=== PATIENT | female | born 2000 | race Hispanic/Latino ===

== ENCOUNTER 2022-05-21 23:19 | Emergency (ER) | payer SELFPAY ==
[~2022-05-21 23:19] MED LIST: Iopamidol 300 61% 100 ML VIAL FS ONE
[2022-05-21 23:45] LABS: Bilirubin Neg (Negative); Blood, Urine 50 (Negative); Clarity Clear (Clear); Glucose, Urine (Dipstick) Normal (Negative); Ketone, Urine Negative (Negative); Leukocyte 100 (Negative); Nitrite Negative (Negative); Protein, Urine (Dipstick) Negative (Neg-Trace); Urobilinogen Normal mg/dL (Less than 2)
[2022-05-21 23:48] LABS: Pregnancy Test - Urine (BHCG) Negative (Negative); Pregu Control Background? CLEAR/WHITE (CLR/WHITE); Pregu Control Bar Appear? YES (CONTROL BAR)
[2022-05-21 23:56] LABS: Bacteria/HPF Rare-Few HPF (None Seen)
[2022-05-22 00:16] LABS: #Eosinphils 0.1 10x3/uL (0.0-0.5); #Monocytes 0.8 10x3/uL (0.0-1.1); #Neutrophils 8.9 10x3/uL (1.5-8.4); %Basophils 0.2 % (0.0-2.0); %Eosinophils 0.6 % (0.0-6.0); %Lymphocytes 30.3 % (18.0-47.0); %Monocytes 5.3 % (0.0-10.0); %Neutrophils 63.4 % (40.0-75.0); Hemoglobin 12.6 g/dL (12.0-15.5); Mean Corpuscular HGB CONC 32.9 g/dL (32.0-36.0); Mean Corpuscular Hemoglobin 27.8 pg (27.0-33.0); Mean Corpuscular Volume 84.4 fl (81.6-98.3); Mean Platelet Volume 9.3 fl (7.4-10.4); Platelet Count 381 10x3/uL (150-450); RBC Distribution Width 13.2 % (11.5-14.5); Red Blood Cell (RBC) Count 4.54 10x6/uL (3.90-5.03); White Blood Cell (WBC) Count 14.1 10x3/uL (3.5-10.5)
[2022-05-22] MEDS ORDERED: Acetaminophen 500 MG TAB ONE (00:26)
[2022-05-22] MEDS ORDERED: Ketorolac Tromethamine 30 MG/ML VIAL ONE (00:26)
[2022-05-22 00:33] LABS: ALT (SGPT) 21 U/L (8-55); AST (SGOT) 16 U/L (5-34); Albumin 4.4 g/dL (3.5-5.0); Alkaline Phosphatase 98 U/L (40-110); Anion Gap 13 mmol/L (10-20); BUN (Urea Nitrogen) 15 mg/dL (7.0-18.7); Bilirubin, Total 0.1 mg/dL (0.2-1.2); Calc. Creatinine Clearance 0 mL/min (70-130); Calcium 9.2 mg/dL (7.8-10.44); Carbon Dioxide 24 mmol/L (22-29); Chloride 107 mmol/L (98-107); Estimated GFR 108; Globulin 3.4 g/dL (2.4-3.5); Glucose 79 mg/dL (70-105); Lipase 63 U/L (8-78); Potassium 3.7 mmol/L (3.5-5.1); Protein, Total 7.8 g/dL (6.0-8.3); Sodium 140 mmol/L (136-145)
[2022-05-22] MEDS ORDERED: Iopamidol 300 61% 100 ML VIAL FS ONE (14:50)
== END 2022-05-22 08:40 | disposition home or self-care (01) ==
LOC: CSHERS 23:19
DX: R10.31 Right lower quadrant pain (principal); R10.813 Right lower quadrant abdominal tenderness
CPT/HCPCS: 74177; 80053; 81003; 81015; 81025; 83690; 85025; 96374; J1885; Q9967

== ENCOUNTER 2022-08-08 13:34 | Emergency (ER) | payer SELFPAY | END 2022-08-08 14:48 | disposition home or self-care (01) | LOC: CSHERS 13:34 | DX: K59.00 Constipation, unspecified (principal) | CPT/HCPCS: 74018 ==

== ENCOUNTER 2022-11-05 06:17 | Emergency (ER) | payer SELFPAY ==
[2022-11-05 07:59] LABS: Bilirubin Neg (Negative); Blood, Urine 10 (Negative); Clarity Clear (Clear); Glucose, Urine (Dipstick) Normal (Negative); Ketone, Urine Negative (Negative); Leukocyte 25 (Negative); Nitrite Negative (Negative); Protein, Urine (Dipstick) Negative (Neg-Trace); Specific Gravity, Urine 1.005 (1.005-1.030); Urobilinogen Normal mg/dL (Less than 2)
[2022-11-05 08:00] LABS: #Monocytes 0.6 10x3/uL (0.0-1.1); #Neutrophils 5.9 10x3/uL (1.5-8.4); %Basophils 0.3 % (0.0-2.0); %Eosinophils 0.4 % (0.0-6.0); %Lymphocytes 33.7 % (18.0-47.0); %Neutrophils 59.5 % (40.0-75.0); Hemoglobin 12.3 g/dL (12.0-15.5); Mean Corpuscular HGB CONC 33.3 g/dL (32.0-36.0); Mean Corpuscular Hemoglobin 27.8 pg (27.0-33.0); Mean Corpuscular Volume 83.3 fl (81.6-98.3); Mean Platelet Volume 9.1 fl (7.4-10.4); Platelet Count 389 10x3/uL (150-450); RBC Distribution Width 13.5 % (11.5-14.5); Red Blood Cell (RBC) Count 4.43 10x6/uL (3.90-5.03)
[2022-11-05 08:15] LABS: Bacteria/HPF Rare-Few HPF (None Seen); RBC/HPF 0-3 HPF (0-3); Squamous Epithelial 0-3 HPF (0-3); WBC/HPF 0-3 HPF (0-3)
== END 2022-11-05 08:57 | disposition home or self-care (01) ==
LOC: CSHERS 06:17
DX: O99.611 Diseases of the digestive system complicating pregnancy, first trimester (principal); K59.00 Constipation, unspecified; O99.891 Other specified diseases and conditions complicating pregnancy; R03.0 Elevated blood-pressure reading, without diagnosis of hypertension; Z3A.01 Less than 8 weeks gestation of pregnancy
CPT/HCPCS: 36415; 76801; 81003; 81015; 84702; 85025; 86900; 86901; 87086

== ENCOUNTER 2022-11-19 07:34 | Emergency (ER) | payer OTHER ==
[2022-11-19] MEDS ORDERED: Ondansetron PF 4 MG/2 ML Vial ONE (07:59)
[2022-11-19 08:25] LABS: Bilirubin Neg (Negative); Blood, Urine Negative (Negative); Clarity Cloudy (Clear); Glucose, Urine (Dipstick) Normal (Negative); Ketone, Urine Negative (Negative); Leukocyte 100 (Negative); Nitrite Negative (Negative); Protein, Urine (Dipstick) Negative (Neg-Trace); Specific Gravity, Urine 1.015 (1.005-1.030); Urobilinogen Normal mg/dL (Less than 2)
[2022-11-19 08:27] LABS: #Monocytes 0.6 10x3/uL (0.0-1.1); #Neutrophils 7.8 10x3/uL (1.5-8.4); %Basophils 0.2 % (0.0-2.0); %Eosinophils 0.2 % (0.0-6.0); %Lymphocytes 21.7 % (18.0-47.0); %Monocytes 5.4 % (0.0-10.0); %Neutrophils 72.2 % (40.0-75.0); Hemoglobin 12.4 g/dL (12.0-15.5); Mean Corpuscular HGB CONC 33.1 g/dL (32.0-36.0); Mean Corpuscular Hemoglobin 27.3 pg (27.0-33.0); Mean Corpuscular Volume 82.6 fl (81.6-98.3); Mean Platelet Volume 9.2 fl (7.4-10.4); Platelet Count 381 10x3/uL (150-450); RBC Distribution Width 13.2 % (11.5-14.5); Red Blood Cell (RBC) Count 4.54 10x6/uL (3.90-5.03); White Blood Cell (WBC) Count 10.8 10x3/uL (3.5-10.5)
[2022-11-19 08:51] LABS: ALT (SGPT) 28 U/L (8-55); AST (SGOT) 13 U/L (5-34); Albumin 4.2 g/dL (3.5-5.0); Alkaline Phosphatase 84 U/L (40-110); Anion Gap 10 mmol/L (10-20); BUN (Urea Nitrogen) 7 mg/dL (7.0-18.7); Bilirubin, Total 0.2 mg/dL (0.2-1.2); Calc. Creatinine Clearance 0 mL/min (70-130); Calcium 9.1 mg/dL (7.8-10.44); Carbon Dioxide 24 mmol/L (22-29); Chloride 105 mmol/L (98-107); Estimated GFR 125; Globulin 3.3 g/dL (2.4-3.5); Glucose 97 mg/dL (70-105); Potassium 3.9 mmol/L (3.5-5.1); Protein, Total 7.5 g/dL (6.0-8.3); Sodium 135 mmol/L (136-145)
[2022-11-19 08:52] LABS: Bacteria/HPF 2+ HPF (None Seen)
== END 2022-11-19 09:45 | disposition home or self-care (01) ==
LOC: CSHERS 07:34
DX: O21.9 Vomiting of pregnancy, unspecified (principal); O23.11 Infections of bladder in pregnancy, first trimester; N30.00 Acute cystitis without hematuria; Z3A.01 Less than 8 weeks gestation of pregnancy
CPT/HCPCS: 80053; 81003; 81015; 83735; 84702; 85025; 96361; 96374; J2405

== ENCOUNTER 2022-11-28 11:21 | Emergency (ER) | payer OTHER ==
[2022-11-28 12:42] LABS: #Monocytes 0.5 10x3/uL (0.0-1.1); #Neutrophils 7.5 10x3/uL (1.5-8.4); %Basophils 0.1 % (0.0-2.0); %Eosinophils 0.1 % (0.0-6.0); %Lymphocytes 16.9 % (18.0-47.0); %Neutrophils 77.7 % (40.0-75.0); Hemoglobin 12.1 g/dL (12.0-15.5); Mean Corpuscular HGB CONC 32.6 g/dL (32.0-36.0); Mean Corpuscular Hemoglobin 26.7 pg (27.0-33.0); Mean Corpuscular Volume 81.7 fl (81.6-98.3); Mean Platelet Volume 9.2 fl (7.4-10.4); Platelet Count 371 10x3/uL (150-450); RBC Distribution Width 13.2 % (11.5-14.5); Red Blood Cell (RBC) Count 4.54 10x6/uL (3.90-5.03); White Blood Cell (WBC) Count 9.6 10x3/uL (3.5-10.5)
[2022-11-28 13:04] LABS: ALT (SGPT) 23 U/L (8-55); AST (SGOT) 17 U/L (5-34); Albumin 4.2 g/dL (3.5-5.0); Alkaline Phosphatase 84 U/L (40-110); Anion Gap 14 mmol/L (10-20); BUN (Urea Nitrogen) 7 mg/dL (7.0-18.7); Bilirubin, Total 0.2 mg/dL (0.2-1.2); Calc. Creatinine Clearance 0 mL/min (70-130); Calcium 9.5 mg/dL (7.8-10.44); Carbon Dioxide 19 mmol/L (22-29); Chloride 106 mmol/L (98-107); Estimated GFR 124; Globulin 3.3 g/dL (2.4-3.5); Glucose 108 mg/dL (70-105); Lipase 24 U/L (8-78); Potassium 3.7 mmol/L (3.5-5.1); Protein, Total 7.5 g/dL (6.0-8.3); Sodium 135 mmol/L (136-145)
[2022-11-28] MEDS ORDERED: Ondansetron PF 4 MG/2 ML Vial ONE (13:24)
[2022-11-28 13:38] LABS: Bilirubin Neg (Negative); Blood, Urine 25 (Negative); Clarity Slightly Cloudy (Clear); Glucose, Urine (Dipstick) Normal (Negative); Ketone, Urine Negative (Negative); Leukocyte 500 (Negative); Nitrite Negative (Negative); Protein, Urine (Dipstick) 15 mg/dl (Neg-Trace); Specific Gravity, Urine 1.015 (1.005-1.030)
[2022-11-28 13:52] LABS: Bacteria/HPF 2+ HPF (None Seen)
[2022-11-28 13:54] LABS: Mucous/LPF 2+ LPF (<2+)
[2022-11-28 13:55] LABS: Trichomonas/HPF Rare HPF (None Seen)
[2022-11-28 15:31] LABS: Lactic Acid 1.8 mmol/L (0.5-2.2)
[2022-11-28] MEDS ORDERED: Acetaminophen 500 MG TAB ONE (16:51)
== END 2022-11-28 16:40 | disposition home or self-care (01) ==
LOC: CSHERS 11:21
DX: O21.9 Vomiting of pregnancy, unspecified (principal); O98.311 Other infections with a predominantly sexual mode of transmission complicating pregnancy, first trimester; A59.01 Trichomonal vulvovaginitis; Z3A.01 Less than 8 weeks gestation of pregnancy
CPT/HCPCS: 36415; 80053; 81003; 81015; 83605; 83690; 84702; 85025; 96361; 96374; J2405

== ENCOUNTER 2022-12-12 09:34 | Emergency (ER) | payer OTHER ==
[2022-12-12 10:27] LABS: Bilirubin Neg (Negative); Blood, Urine 150 (Negative); Clarity Cloudy (Clear); Glucose, Urine (Dipstick) Normal (Negative); Ketone, Urine 5 mg/dL (Negative); Leukocyte 500 (Negative); Nitrite Negative (Negative); Protein, Urine (Dipstick) 30 mg/dl (Neg-Trace); Specific Gravity, Urine 1.025 (1.005-1.030)
[2022-12-12] MEDS ORDERED: Lidocaine 1% (PF) 30 ML VIAL ONE (10:43)
[2022-12-12 10:58] LABS: Trichomonas/HPF 2+ HPF (None Seen)
[2022-12-12 10:59] LABS: Bacteria/HPF 2+ HPF (None Seen); Mucous/LPF 1+ LPF (<2+)
== END 2022-12-12 11:50 | disposition home or self-care (01) ==
LOC: CSHERS 09:34
DX: O99.711 Diseases of the skin and subcutaneous tissue complicating pregnancy, first trimester (principal); L02.416 Cutaneous abscess of left lower limb; L03.116 Cellulitis of left lower limb; A59.9 Trichomoniasis, unspecified; Z3A.10 10 weeks gestation of pregnancy
CPT/HCPCS: 81003; 81015; 87070; 87077; 87086; 87205; 99283; J2001

== ENCOUNTER 2024-04-30 11:21 | Emergency (ER) | payer OTHER ==
[2024-04-30] MEDS ORDERED: Ondansetron PF 4 MG/2 ML Vial ONE (11:53)
[2024-04-30] MEDS ORDERED: Ketorolac Tromethamine 30 MG (1 mL) VIAL ONE (11:53)
[2024-04-30 12:00] LABS: #Basophils 0.03 10x3/uL (0.0-0.2); #Eosinphils 0.07 10x3/uL (0.0-0.5); #Monocytes 0.53 10x3/uL (0.0-1.1); #Neutrophils 5.47 10x3/uL (1.5-8.4); %Basophils 0.3 % (0.0-2.0); %Eosinophils 0.8 % (0.0-6.0); %Lymphocytes 34.1 % (18.0-47.0); %Monocytes 5.7 % (0.0-10.0); %Neutrophils 58.9 % (40.0-75.0); Hematocrit 38.9 % (34.9-44.5); Hemoglobin 12.7 g/dL (12.0-15.5); Mean Corpuscular HGB CONC 32.6 g/dL (32.0-36.0); Mean Corpuscular Hemoglobin 25.1 pg (27.0-33.0); Mean Platelet Volume 8.7 fL (7.4-10.4); Platelet Count 378 10x3/uL (150-450); RBC Distribution Width 14.9 % (11.5-14.5); Red Blood Cell (RBC) Count 5.05 10x6/uL (3.90-5.03); White Blood Cell (WBC) Count 9.3 10x3/uL (3.5-10.5)
[2024-04-30 12:08] LABS: BHCG - Serum Negative (NEGATIVE); Pregs Control Background? CLEAR/WHITE (CLR/WHITE); Pregs Control Bar Appear? YES (CONTROL BAR)
[2024-04-30 12:13] LABS: ALT (SGPT) 46 U/L (8-55); AST (SGOT) 32 U/L (5-34); Albumin 3.6 g/dL (3.5-5.0); Alkaline Phosphatase 111 U/L (40-110); Anion Gap 13 mmol/L (10-20); BUN (Urea Nitrogen) 12 mg/dL (7.0-18.7); Bilirubin, Total 0.2 mg/dL (0.2-1.2); Calc. Creatinine Clearance 0 mL/min (70-130); Calcium 9.2 mg/dL (7.8-10.44); Carbon Dioxide 22 mmol/L (22-29); Chloride 104 mmol/L (98-107); Estimated GFR 113; Globulin 3.5 g/dL (2.4-3.5); Glucose 150 mg/dL (70-105); Lipase 33 U/L (8-78); Potassium 3.6 mmol/L (3.5-5.1); Protein, Total 7.1 g/dL (6.0-8.3); Sodium 135 mmol/L (136-145)
[2024-04-30] MEDS ORDERED: Morphine 4 MG/ML VIAL ONE (13:56)
[2024-04-30 15:47] LABS: Bilirubin 1+ (Negative); Blood, Urine 25 (Negative); Clarity Cloudy (Clear); Glucose, Urine (Dipstick) 50 mg/dL (Negative); Ketone, Urine Negative (Negative); Leukocyte 25 (Negative); Nitrite Negative (Negative); Protein, Urine (Dipstick) 30 mg/dl (Neg-Trace); Specific Gravity, Urine 1.025 (1.005-1.030); Urobilinogen 12 mg/dL (Less than 2)
[2024-04-30 16:11] LABS: CAUTI Indications for Culture Pelvic or flank pain
[2024-04-30 16:13] LABS: Transitional Epithelial 0-3 HPF (None Seen)
[2024-04-30 16:14] LABS: Bacteria/HPF 2+ HPF (None Seen); Mucous/LPF 1+ LPF (<2+)
[2024-04-30 16:16] LABS: Urine Culture Reflex No No
== END 2024-04-30 16:05 | disposition home or self-care (01) ==
LOC: CSHERS 11:21
DX: R10.9 Unspecified abdominal pain (principal); R31.9 Hematuria, unspecified
CPT/HCPCS: 76705; 80053; 81001; 83690; 84703; 85025; 96374; 96375; J1885; J2405

== ENCOUNTER 2025-06-02 18:00 | Emergency (ER) | payer OTHER, SELFPAY ==
[2025-06-02] MEDS ORDERED: Ketorolac Tromethamine 30 MG (1 mL) VIAL ONE (18:53)
== END 2025-06-02 19:07 | disposition home or self-care (01) ==
LOC: CSHERS 18:00
DX: M77.8 Other enthesopathies, not elsewhere classified (principal)
CPT/HCPCS: 96372; 99283; J1885